=== PATIENT | male | born 1990 | race Caucasian/White ===

== ENCOUNTER 2019-02-05 17:25 | Emergency (ER) | payer OTHER ==
[~2019-02-05] VITALS: Ht 172.7 cm; Wt 104.3 kg
[2019-02-05] MEDS ORDERED: BUPRENORPHIN-N1 EACH SL (19:12)
[2019-02-05] MEDS ORDERED: ZOLOFT100 MG PO (19:12)
[2019-02-05] MEDS ORDERED: INDOMETHACIN50 MG PO (19:30)
== END 2019-02-05 19:52 | disposition home or self-care (01) ==
LOC: ED 17:25
DX: M79.671 Pain in right foot (principal); F41.9 Anxiety disorder, unspecified; F17.200 Nicotine dependence, unspecified, uncomplicated
CPT/HCPCS: 99283

== ENCOUNTER 2019-03-22 16:41 | Emergency (ER) | payer OTHER ==
[~2019-03-22] VITALS: Ht 172.7 cm; Wt 104.3 kg
[~2019-03-22 16:41] MED LIST: BUPRENORPHIN-N1 EACH SL; INDOMETHACIN50 MG PO; ZOLOFT100 MG PO
--- OUTSIDE RECORDS SUMMARY | 2019-03-22 16:44 | XMS ---
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 No recent Security Events currently on file CRITERIA MET - [facility] KARINA NAVARRETE Physician Assistant Yariel Choe PHONE: [phone] KARINA NAVARRETE Primary Care Current PHONE: Unknown MECHELLE SALCEDO Primary Care Yariel HARMAN PHONE: Unknown Dasia Stratton Primary Care Current PHONE: [phone] Josr Arcos Primary Care Current PHONE: [phone] Guidelines Source: [employer] [place] Guidelines Date: 06/18/2018 Care Coordination: Currently receiving MH services at [facility] in [facility]. [phone]. E.D. VISIT COUNT (12 MO.) [address] [place] [place] TOTAL 5 NOTE: Visits indicate total known visits. ED/UCC VISIT TRACKING (12 MO.) 03/22/2019 16:42 [facility] [place] TYPE: Emergency COMPLAINT: - CHEST PAIN 02/05/2019 17:26 [facility] [place] TYPE: Emergency COMPLAINT: - R FOOT PAIN,NON INJURY DIAGNOSES: - Nicotine dependence, unspecified, uncomplicated - Anxiety disorder, unspecified - Pain in right foot 10/10/2018 10:[address] [facility] [place] TYPE: Emergency DIAGNOSES: - CHEST PAIN DIFFICULTY BREATHING - Other chest pain 06/17/2018 20:[address] [facility] [place] TYPE: Emergency COMPLAINT: - OD 04/04/2018 13:[address] [facility] [place] TYPE: Emergency COMPLAINT: - RIGHT UPPER ABD PAIN INPATIENT VISIT TRACKING (12 MO.) 06/18/2018 04:39 [facility] TYPE: General Medicine DIAGNOSES: - diffuse alveolar hemorrhage vs aspiration - Opoid OD - Hypoxia - PE Hemorrhage - Hemoptysis [email or web address]
[2019-03-22] MEDS ORDERED: MODAFINIL100 MG PO (17:38)
--- NOTE | 2019-03-23 16:10 | EKG ---
[facility] [address] [facility] [place], [place] [address] Signed Normal sinus rhythm Normal ECG No previous ECGs available Confirmed by LORAINE REY DO ([id number]) on 03/23/2019 4:10:11 PM Electronically Signed By: LORAINE REY DO 03/23/19 1610 PATIENT NAME: KEREN KABA CRISSY Electrocardiogram DATE OF : 89 PHYSICIAN: LORAINE REY DO REPORT #: [id number] REPORT IS CONFIDENTIAL AND NOT TO BE RELEASED WITHOUT AUTHORIZATION
== END 2019-03-22 17:52 | disposition home or self-care (01) ==
LOC: ED 16:41
DX: R06.00 Dyspnea, unspecified (principal); F17.200 Nicotine dependence, unspecified, uncomplicated; F41.9 Anxiety disorder, unspecified; Z79.899 Other long term (current) drug therapy
CPT/HCPCS: 93005; 93010; 99284-25

== ENCOUNTER 2022-04-12 11:35 | Emergency (ER) | payer OTHER ==
[~2022-04-12] VITALS: Ht 172.7 cm; Wt 116.3 kg
[~2022-04-12 11:35] MED LIST changes: +MODAFINIL100 MG PO
--- OUTSIDE RECORDS SUMMARY | 2022-04-12 11:38 | XMS ---
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 ED/UCC VISIT TRACKING (12 MO.) 04/12/2022 11:37 [facility] [place] TYPE: Emergency COMPLAINT: - CHEST PAIN, L ARM PAIN INPATIENT VISIT TRACKING (12 MO.) No inpatient visits to display in this time frame [email or web address]
--- NOTE | 2022-04-13 13:12 | EKG ---
[facility] [address] [facility] [place], [place] [address] Signed Normal sinus rhythm Normal ECG When compared with ECG of 22-MAR-2019 16:49, No significant change was found Confirmed by TREASURE OLMSTEAD MD ([id number]) on 04/13/2022 1:12:10 PM Electronically Signed By: TREASURE OLMSTEAD MD 04/13/22 1312 PATIENT NAME: KEREN KABA CRISSY Electrocardiogram DATE OF : [birth year] PHYSICIAN: TREASURE OLMSTEAD MD REPORT #: [id number] REPORT IS CONFIDENTIAL AND NOT TO BE RELEASED WITHOUT AUTHORIZATION
== END 2022-04-12 12:46 | disposition home or self-care (01) ==
LOC: ED 11:35
DX: R07.89 Other chest pain (principal); F17.200 Nicotine dependence, unspecified, uncomplicated; Z88.0 Allergy status to penicillin; Z79.899 Other long term (current) drug therapy
CPT/HCPCS: 36415; 71046; 84484; 85025; 93005; 93010; 99285-25